=== PATIENT | male | born 1930 | race Caucasian/White ===

== ENCOUNTER → 2018-01-14 | Outpatient (CLI) | payer MEDICARE, OTHER ==
[~2018-01-14] MED LIST: ADJUSTABLE COMM1 MIS; AMLO5TAB2 PO; ASPI-183 PO; CITA20TA4 PO; FOLI1TAB6 PO; HYDR-3580 PO; MELO15TA20 PO; OMEP20TA93 PO; SACC1CAP3 PO; VITA10004 PO; WALKER WHEELS/F1 MIS
--- NOTE | 2018-01-14 09:57 | RADRPT ---
EXAM DATE/TIME: 01/14/2018 09:36 [facility] COMPARISON: CHEST PA & LAT, July 31, 2016, 10:45. INDICATIONS : Evaluate for pneumonia, pneumothorax or communicable disease. Pre op for right total hip surgery. MEDICAL HISTORY : hear murmur SURGICAL HISTORY : None. ENCOUNTER: Initial ACUITY: 1 day PAIN SCORE: 0/10 LOCATION: Bilateral chest FINDINGS: There is mild compensated cardiomegaly with minimal hyperinflation. There is no alveolar consolidati on, pleural effusion or pneumothorax. Previous surgery left shoulder. CONCLUSION: Hyperinflation with mild compensated cardiomegaly Harlan Truong MD FACR on January 14, 2018 at 9:54 Board Certified Radiologist. This report was verified electronically.
[2018-01-14 10:03] LABS: AUTOMATED NEUTROPHIL # 4.4 TH/MM3 (1.8-7.7); BASOPHIL % 0.7 % (0.0-2.0); EOSINOPHIL # 0.1 TH/MM3 (0-0.4); EOSINOPHIL % 1.7 % (0.0-4.0); HEMOGLOBIN 14.4 GM/DL (13.0-17.0); LYMPH % 22.1 % (9.0-44.0); LYMPHOCYTE # 1.4 TH/MM3 (1.0-4.8); MEAN CELL VOLUME 95.2 FL (80.0-100.0); MEAN CORPUSCULAR HEMOGLOBIN 32.7 PG (27.0-34.0); MEAN CORPUSCULAR HGB CONC 34.3 % (32.0-36.0); MONO % 7.1 % (0.0-8.0); MONOCYTE # 0.5 TH/MM3 (0-0.9); NEUT % 68.4 % (16.0-70.0); PLATELET COUNT 187 TH/MM3 (150-450); RED BLOOD COUNT 4.41 MIL/MM3 (4.50-5.90); WHITE BLOOD COUNT 6.4 TH/MM3 (4.0-11.0)
[2018-01-14 10:06] LABS: INTERNATIONAL NORMALIZED RATIO 1.1 RATIO; PROTHROMBIN TIME - PATIENT 10.7 SEC (9.8-11.6)
[2018-01-14 10:10] LABS: BILIRUBIN, URINE NEG (NEG); BLOOD, URINE NEG (NEG); GLUCOSE,URINE NEG (NEG); KETONE, URINE NEG (NEG); MUCUS URINE FEW /lpf (OCC); NITRITE,URINE NEG (NEG); PH, URINE 6.5 (5.0-8.5); URINE COLOR YELLOW (YELLW/STRAW); URINE LEUKOCYTE ESTERASE TRACE (NEG)
[2018-01-14 10:29] LABS: BICARBONATE 26.1 MEQ/L (21.0-32.0); CALCIUM 8.5 MG/DL (8.5-10.1); CREATININE 0.97 MG/DL (0.60-1.30)
--- NOTE | 2018-01-16 08:20 | EKG ---
Date Performed: 01/14/2018 Time Performed: 09:02:54 PTAGE: 87 years EKG: ATRIAL FIBRILLATION MARKED LEFT AXIS DEVIATION ABNORMAL ECG Compared to PREVIOUS TRACING , atrial fibrillation has replaced Sinus rhythm . PREVIOUS TRACIN08/09/2016 21.27 DOCTOR: Gerardo Mendoza Interpretating Date/Time 01/16/2018 08:19:02
== END ==
LOC: CPRE 08:41
PROVIDERS: ATTEND Orthopaedic Surgery
DX: Z01.810 Encounter for preprocedural cardiovascular examination (principal); Z01.812 Encounter for preprocedural laboratory examination; Z01.811 Encounter for preprocedural respiratory examination; M16.51 Unilateral post-traumatic osteoarthritis, right hip; I48.91 Unspecified atrial fibrillation
CPT/HCPCS: 36415; 71046; 80048; 81001; 85025; 85610; 93005

== ENCOUNTER 2018-01-22 06:18 | Inpatient (IN) | payer MEDICARE, OTHER ==
--- NOTE | 2018-01-17 12:33 | MH ---
cc: Eduar Colorado MD DATE OF ADMISSION: 01/22/2018 He is scheduled to be admitted to the hospital on 01/22/2018. 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 HISTORY OF PRESENT ILLNESS: The patient is an 87-year-old white male who has experienced at least a 6 month history of pain involving his right hip area. He has noted the gradual onset of discomfort unrelated to injury or unusual activity. He has been taking meloxicam that he had available at home without any significant benefit of his symptoms being noted and continued to note pain about the right hip and groin area with an intermittent sensation of giving way, although a fall had not actually occurred. Subsequently, he did fall on at least one occasion, but was able to arise and ambulate thereafter and then began to utilize a cane as a parttime ambulatory aid. He had been conforming to exercise activities, which included walking with his where he described obviously limitation secondary ongoing pain. He did report that he had sustained an injury to his right hip secondary to a fall from a ladder within the previous 10 years sustaining a fracture possibly involving his acetabular area. The patient was unable to be more specific in this regard but did undergo orthopedic evaluation at that time, being treated in a nonoperative fashion. He presented to the undersigned physician in 12/2017, describing considerable incapacitation with regards to all ambulatory activities. His x-ray studies revealed severe degenerative changes of the right hip with subtotal obliteration of the joint space, hypertrophic reaction and deformation of the femoral head with a flattening effect being noted. Findings and treatment options were reviewed with the patient at that time. The pros and cons of continued conservative management, versus operative intervention that would involve a total hip replacement were outlined in detail. Emphasis was made regarding the fact that the decision to proceed with surgery would be left entirely to the patient's discretion. The patient readily admitted that he did not feel that continuing with conservative modalities would improve his symptoms and given the progressive nature of his pain with a frequent giving way sensation, with the patient being quite apprehensive that additionally injury might occur secondary to a fall, he was more than eager to proceed with surgery at this time. In compliance with his wishes, he has subsequently been scheduled for admission in order that the above be accomplished. PAST MEDICAL HISTORY: Hospitalizations and surgeries have included a left reverse shoulder arthroplasty for a history of severe glenohumeral joint arthritis, previous arthroscopic surgery of both shoulders, bilateral cataract excision with intraocular lens implants, treatment for macular degeneration, colonoscopy, esophageal dilation and medical observation and management for a syncopal episode. The patient's medical illnesses include hypertension. CURRENT MEDICATIONS: Omeprazole 20 mg daily, meloxicam 15 mg daily, amlodipine 5 mg daily, citalopram 20 mg daily, an 81 mg aspirin tablet daily, vitamin B12, vitamin D3 and probiotic all taken on a daily basis. ALLERGIES: THE PATIENT DENIES ANY KNOWN DRUG ALLERGIES. REVIEW OF SYSTEMS: He does wear glasses. No headache, seizure or syncope. Diminished auditory acuity for which hearing aids have been utilized in the past. No tinnitus. No bleeding gums or dysphagia. Denies cough, shortness of breath, upper respiratory infection and pneumonia. There is an occasional sinus congestion. No angina. He is medically managed for hypertension. Appetite good. Bowel movements regular. No hepatitis, gallbladder disease, ulcers or hemorrhoids. No urinary tract infection. No kidney stones. No prostate disease. A nasal fracture as well as fracture of the lumbar spine, fracture of the left hand and multiple ribs fractures. No psychiatric illness. Remaining review of systems is unremarkable and noncontributory. FAMILY HISTORY: 25 years, this being his third marriage. is 69 years of age, in good health. Two sons and two daughters. One son secondary to a history of lupus. He has 4 adopted children; 2 sons and 2 daughters. One son with a history of pancreatic cancer, one daughter secondary to lung cancer. Family history is positive for diabetes, stroke and Alzheimer disease. SOCIAL HISTORY: The patient completed an 8th grade education. 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 He denies active use of tobacco for at least 40 years, having been a less than 1 pack per day user for 20 years in the past. Ethanol consumption in the form of an occasional glass of wine. PHYSICAL EXAMINATION: VITAL SIGNS: Height 6 feet 1 inch, weight 177 pounds. GENERAL: An alert, oriented and responsive 87-year-old white male who sits quietly upon the examination table with no obvious distress. HEAD, EARS, EYES, NOSE AND THROAT: Pupils are equally round and reactive to light. Extraocular movements full. Sclerae clear. External nares clear. External auditory canals clear. Dental intact. Mucous membranes pink and moist. Pharynx clear. NECK: Supple, active mobility with slight limitations at the extreme of motion indicated to be chronic in nature. Carotid pulse palpable bilaterally. Trachea midline. Thyroid without enlargement. LUNGS: Clear to auscultation and percussion. BACK: No CVA tenderness. No discomfort throughout the dorsal lumbar spine. HEART: Regular irregular rhythm with grade III/ systolic murmur heart best at the right second intercostal space. ABDOMEN: Soft, nontender. Bowel sounds present. RECTAL: Per primary care physician. EXTREMITIES: Right hip: There is no localizing tenderness along the lateral aspect of the right hip. There is limited and restricted mobility of the hip joint in all ranges assessed with pain at the extreme of motion, especially involving internal rotation. Straight leg raising unremarkable at 80 degrees. Juan sign is positive. Distal sensory grossly intact. Limb length discrepancy with shortening of the right leg of at least 1-2 cm magnitude. Pronounced antalgic gait. NEUROLOGIC: Cranial nerves II through XII grossly intact, excluding diminished auditory acuity. 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 PLAN: Right total hip arthroplasty. The nature of the planned surgical procedure, the potential complications and risks associated, the expectations of surgery and the consent form were thoroughly reviewed with the patient in the presence of his prior to admission to the hospital. Shailesh has indicated his full understanding regarding all of the above and given consent to proceed with treatment as outlined. Medical evaluation and clearance for surgery will be completed preoperatively by his primary care physician, Dr. Jenkins. MD RIVKA Bhatt/MARGRET , 11:48 AM , 12:32 PM
[~2018-01-22] VITALS: Ht 182.9 cm; Wt 80.4 kg
[~2018-01-22 06:18] MED LIST changes: -ADJUSTABLE COMM1 MIS; -ASPI-183 PO; -FOLI1TAB6 PO; -HYDR-3580 PO; -WALKER WHEELS/F1 MIS
[2018-01-22] MEDS ORDERED: POVIDONE IODINE 5% (ANTISEPSIS KIT) 4 APPLICATIONS EACH NARE PRN (06:45)
[2018-01-22] MEDS ORDERED: SODIUM CHLORID 0.9% 500 ML IV PRN (06:45)
[2018-01-22] MEDS ORDERED: CHLORHEXIDINE GLUCONATE 2 % 1 PACK (2 CLOTHS) TOPICAL PRN (06:45)
[2018-01-22] MEDS ORDERED: LACTATED RINGER'S 1000 ML IV PRN (06:45)
[2018-01-22] MEDS ORDERED: METOPROLOL TARTRATE 25 MG TAB PO PRN (06:45)
[2018-01-22] MEDS ORDERED: POVIDONE IODINE 7.5% SCRUB 118 ML BOTTLE TOPICAL SCH (07:00)
[2018-01-22] MEDS ORDERED: TRANEXAMIC ACID 1 GM PRIOR TO PROCEDURE IV SCH ×2 (07:00)
[2018-01-22] MEDS ORDERED: ceFAZolin 2 GM PREMIX 50 ML IV SCH (07:00)
[2018-01-22] MEDS ORDERED: FOLI1TAB6 PO (07:06)
[2018-01-22] MEDS ORDERED: HEPARIN SODIUM - SQ 10,000 UNITS/ML VIAL ONE (09:25)
[2018-01-22] MEDS: ceFAZolin INJ 1,000 MG VIAL ONE ×2 (09:50→10:35)
[2018-01-22] MEDS ORDERED: TRANEXAMIC ACID 1 GM POST-OP IV SCH ×2 (10:00)
[2018-01-22] MEDS ORDERED: PHENYLEPH/NS 1000 MCG/10 ML SYR IV ONE (12:00)
[2018-01-22] MEDS ORDERED: NEOSTIGMINE 5 MG/5 ML SYRINGE IV PUSH ONE (12:00)
[2018-01-22] MEDS ORDERED: ROCURONIUM INJ 50 MG/5 ML SYRINGE IV PUSH ONE (12:00)
[2018-01-22] MEDS ORDERED: LACTATED RINGER'S 1000 ML INJ 1,000 ML IV ONE (12:00)
[2018-01-22] MEDS ORDERED: ESMOLOL HCL 100 MG/10 ML VIAL IV ONE (12:00)
[2018-01-22] MEDS ORDERED: PROPOFOL 200 MG/20 ML AMP IV ONE (12:00)
[2018-01-22] MEDS ORDERED: METOPROLOL TARTRATE 5 MG/5 ML VIAL IV ONE (12:00)
[2018-01-22] MEDS ORDERED: GLYCOPYRROLATE 1 MG/5 ML SYRINGE IV PUSH ONE (12:00)
[2018-01-22] MEDS ORDERED: ONDANSETRON HCL 4 MG/2 ML VIAL IV ONE (12:00)
[2018-01-22] MEDS ORDERED: DEXAMETHASONE SOD PHOS 4 MG/ML VIAL IV ONE (12:00)
[2018-01-22] MEDS ORDERED: ePHEDrine/NS 25 MG/5 ML SYRINGE IV ONE (12:00)
[2018-01-22] MEDS ORDERED: ASPI-183 PO (12:35)
[2018-01-22] MEDS ORDERED: HYDR-3580 PO (12:35)
--- NOTE | 2018-01-22 12:37 | HHI.FF ---
Face to Face Verification Diagnosis: (1) Degenerative joint disease of right hip Physical Therapy Gait training Hip: Total hip, Protocol: Right, Posterior hip precautions, Abduction pillow while in bed, Progress to weight bearing Right LE Weight Bearing: WB as tolerated Right LE Range of Motion: Active ROM Nursing Dressing Changes: Daily dressing change I have seen patient Shailesh Bañuelos on 01/22/18. My clinical findings support the need for the requested home health care services because: Limited ability to care for self High risk of falls I certify that my clinical findings support that this patient is homebound because: Post-op weakness Unsteady gait/balance Unsafe to leave home unassisted Eduar Colorado MD Jan 22, 2018 12:37
[2018-01-22] MEDS ORDERED: ADJUSTABLE COMM1 MIS (12:40)
[2018-01-22] MEDS ORDERED: WALKER WHEELS/F1 MIS (12:40)
[2018-01-22] MEDS ORDERED: TRANEXAMIC ACID INJ 1,000 MG in SODIUM CHLORIDE 0.9% INJ 100 ML IV SCH (12:45)
--- NOTE | 2018-01-22 13:07 | MP ---
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 PROCEDURE: Right total hip arthroplasty. SURGEON: Eduar Colorado MD ANESTHESIA: General endotracheal. INDICATIONS: An 87-year-old white male with a 6 month history of pain involving the right hip area. He had noted the gradual onset of his discomfort, unrelated to injury or unusual activity. He had been taking meloxicam that he had available at home without any significant benefit of his symptoms being noted and continuing to experience pain about the right hip and groin area with an intermittent sensation of giving way, although a fall had not actually occurred. He subsequently did fall on at least 1 occasion, but was able to rise and ambulate thereafter, beginning to utilize a cane as an ambulatory aid. He had been conforming to exercise activities, which included walking with his where he described obvious limitations secondary to ongoing pain. He did report that he had sustained an injury to his right hip secondary to a fall from a ladder within the previous 10 years, sustaining a fracture, possibly involving his acetabular area. The patient was unable to be more specific in this regard, indicating that he did undergo orthopedic evaluation at that time, but was treated in a nonoperative fashion. He presented to the undersigned physician in December of this year, describing considerable incapacitation with regards to all ambulatory activities. His x-ray studies revealed severe degenerative changes of the right hip with subtotal obliteration of the joint space, hypertrophic reaction and deformation of the femoral head with a flattening effect being noted. Findings and treatment options were reviewed with the patient at that time. The pros and cons of continuing with conservative management versus operative intervention that would involve a total hip replacement were outlined in detail Emphasis was made regarding the fact that the decision to proceed with surgery would be left entirely to the patient's discretion. The patient readily admitted that he did not feel that continuing with conservative modalities would improve his symptoms, and given the progressive nature of his pain with a frequent giving way sensation and the patient being quite apprehensive that an additional injury might occur secondary to a fall, he was more than eager to proceed with surgery at this time. In compliance with his wishes, he was scheduled for admission in order that the above be accomplished. FORMAT: Following the induction of satisfactory general anesthesia as completed per the department of anesthesia, the patient was positioned upon the operating table in a left lateral decubitus fashion. The right hip and lower extremity proper were isolated with U-drape, thereafter being prepped with betadine solution and draped into a sterile field in the routine manner. Prior to initiation of the actual procedure, the standard timeout protocol was completed. All parameters were appropriately addressed and confirmed by operating room personnel. A standard posterolateral approach to the hip was initiated through a sharp skin incision and developed through underlying subcutaneous tissue with hemostasis maintained by electrocautery. By deepening the section, the fascia overlying the gluteus musculature was exposed, and thereafter sharply incised to the limits of the incision. The underlying gluteus fibers were bluntly divided with the Bovie on cutting current. Progressive dissection facilitated exposure of the short external rotator structures. The piriformis tendon was utilized as an anatomical landmark, and division of these structures was completed in a superior to inferior orientation and reflected medially exposing the posterior capsule. The sciatic nerve was protected. An L capsulotomy was accomplished through which a posterior dislocation of the femoral head was completed. Examination revealed severe degenerative changes with subchondral bone exposed, hypertrophic bony reaction and deformation of the femoral head. The femoral template was positioned for alignment orientation, the neck was scored and thereafter divided with power saw , the amputated segment being passed to the back table as a surgical specimen. Attention was initially directed to the proximal femur. Cancellous bone was harvested. The tapered reamer was inserted for alignment orientation. Sequential rasping and broaching was accomplished from 7 through 14 mm with the calcar melvin being utilized at the 13 mm stage. The 14 mm stem was determined to be a favorable fit. The trial component being removed, attention was redirected to the acetabulum. The labrum and reactive sharp tissue were sharply excised. Progressive reaming was accomplished from 50 through 55 mm with a 56 trial shell positioned and determined to be satisfactory. All trial components being removed, the wound was copiously irrigated with pulsating antibiotic solution, hemostasis maintained by electrocautery. Harvested cancellous bone was digitally impacted into the depths of the acetabulum and thereafter, a 56 mm RingLoc acetabular shell was firmly seated in approximately 45 degrees inclination to the horizontal and slight anteversion. A single 25 mm 6.5 cancellous screw was inserted superiorly to augment fixation. The permanent hollow acetabular liner was affixed to the acetabular shell. Attention returned to the proximal femur. The 14 mm trial femoral broach was positioned, and a trial reduction followed utilizing a 36 mm modular head with -6 mm neck length adapter. The hip readily reduced and was carried through a passive range of motion with stability demonstrated at 90 degrees flexion and 45 degrees internal rotation. An open dislocation was completed, the trial femoral component being removed. The canal was thoroughly irrigated and dried, and thereafter, the permanent 14 mm Echo Bi-Metric standard femoral stem was firmly seated to which a 36 mm ceramic head with -6 mm neck length adaptor attached. Open reduction completed and repeat range of motion again noted stability as previously described. Final irrigation was accomplished with hemostasis maintained. The posterior capsule was repaired with 0 Vicryl suture. Piriformis tendon and short external rotator structures were reapproximated in a similar manner. Hemovac drain tubes were inserted through superior stab wounds. The fascia of the gluteus musculature was reapproximated with a running 0 Vicryl suture. Remaining portion of the wound was closed in layers in the routine manner, skin margins being reapproximated with a running subcuticular 3-0 Vicryl suture over which Steri-Strips were applied. Xeroform gauze and a bulky dry sterile dressing were placed. The patient was repositioned into a supine orientation where an abduction splint was attached. Anesthesia was discontinued. He was thereafter transferred to a hospital bed and returned to the recovery room in satisfactory condition having tolerated his operative procedure well. Estimated blood loss was approximately 500 mL as determined per anesthesia. All implants were of the [employer] forestry hunter. MD RIVKA Bhatt/FLAQUITA , 12:28 PM , 01:05 PM
--- NOTE | 2018-01-22 13:47 | RADRPT ---
EXAM DATE/TIME: 01/22/2018 12:49 [facility] COMPARISON: None. INDICATIONS : <<Post op right hip>> MEDICAL HISTORY : None. SURGICAL HISTORY : None. ENCOUNTER: Initial ACUITY: 1 day PAIN SCORE: Non-responsive. LOCATION: Right hip FINDINGS: Single AP view reveals right total hip replacement. Drain in soft tissues. Normal alignment. CONCLUSION: 1. Postoperative right hip replacement. Pelon Oleary MD on January 22, 2018 at 13:41 Board Certified Radiologist. This report was verified electronically.
[2018-01-22] MEDS ORDERED: ACETAMINOPHEN 325 MG TAB PO PRN (14:00)
[2018-01-22] MEDS: PCA - TOTAL MG MORPHINE DELIVERED PER SHIFT SCH ×2 (14:00→21:19)
[2018-01-22] MEDS: DEXT 5%-NACL 0.45% 1000 ML INJ 1,000 ML IV SCH ×2 (14:00→21:18)
[2018-01-22] MEDS ORDERED: Post-op Orders (for Pharmacy) XX ONE (14:00)
[2018-01-22] MEDS ORDERED: ACETAMINOPHEN/HYDROcodone 325 MG/5 MG TAB PO PRN ×2 (14:00)
[2018-01-22] MEDS ORDERED: NALOXONE HCL 0.4 MG/ML AMP IV PUSH PRN (14:00)
[2018-01-22] MEDS ORDERED: MORPHINE SULFATE 30 MG/30 ML PCA IV SCH (14:00)
[2018-01-22] MEDS ORDERED: ONDANSETRON HCL 4 MG/2 ML VIAL IVP PRN (14:00)
[2018-01-22] MEDS ORDERED: DOCUSATE SODIUM 100 MG CAP PO PRN (14:15)
[2018-01-22] MEDS ORDERED: DO NOT ADM ANY ANTICOAGULANT DRUGS PRN (14:30)
--- NOTE | 2018-01-22 16:19 | PD.CONS ---
HPI Service [facility] Consult Requested By Dr. solitario Reason for Consult Medical management Primary Care Physician Andres Jenkins MD Diagnoses: History of Present Illness This is an 87-year-old male with history of hypertension admitted for right hip replacement. We are being consulted for medical management. Presently, patient is postsurgical, mildly hypotensive in the systolic 90s but also received morphine 8 mg a few minutes ago. Patient does not have any complaints other than mild right hip pain. Denies any chest pain, shortness of breath, nausea, vomiting or headache. Review of Systems ROS Limitations: Other (All other pertinent systems were reviewed and are negative.) Past Family Social History Allergies: Coded Allergies: No Known Allergies (Verified Allergy, Unknown, 01/14/18) Past Medical History Hypertension History of syncope Past Surgical History Left reverse shoulder arthroplasty Arthroscopic surgery both shoulders Cataract excision Macular degeneration Colonoscopy Esophageal dilation Right hip arthroplasty Reported Medications Aspirin 325 Mg Tab 325 Mg PO BID Hydrocodone-Acetaminophen 7.5 Mg-325 Mg Tab 2 Tab PO Q6H PRN Folic Acid 1 Mg Tablet 1 Tab PO DAILY Vitamin B-12 Cr (Cyanocobalamin) 1,000 Mcg Tab 1,000 Mcg PO DAILY Citalopram (Citalopram Hydrobromide) 20 Mg Tab 20 Mg PO DAILY Meloxicam 15 Mg Tab 15 Mg PO DAILY Amlodipine (Amlodipine Besylate) 5 Mg Tab 5 Mg PO DAILY Omeprazole 20 Mg Tab 20 Mg PO DAILY Probiotic (Saccharomyces Boulardii) 250 Mg Cap 250 Mg PO DAILY Family History One son lupus, another son had pancreatic cancer, one daughter had lung cancer. There is family history of stroke, Alzheimer's disease and diabetes. Social History , no tobacco use for 40 years now, used to smoke 1 pack a day for 20 years. Moderate alcohol consumption with an occasional glass of wine. Physical Exam Vital Signs Vital Signs Date Time Temp Pulse Resp B/P (MAP) Pulse Ox O2 Delivery O2 Flow Rate FiO2 01/22/18 15:30 95 14 101/62 (75) 92 Nasal Cannula 2 01/22/18 14:30 85 14 101/62 (75) 98 Nasal Cannula 2 01/22/18 14:04 14 01/22/18 14:00 86 14 102/62 (75) 98 Nasal Cannula 2 01/22/18 13:45 92 16 103/75 (84) 98 Nasal Cannula 2 01/22/18 13:30 86 16 101/57 (72) 98 Nasal Cannula 2 01/22/18 13:15 85 16 104/69 (81) 98 Nasal Cannula 2 01/22/18 13:00 84 16 121/66 (84) 94 Nasal Cannula 2 01/22/18 12:45 83 16 99/64 (76) 96 01/22/18 12:30 101 20 83/50 (61) 94 Simple Mask 6 01/22/18 12:25 97.8 113 20 94/56 (69) 93 Physical Exam Not in distress, well-nourished, looks stated age PERRL, pink conjunctiva without injection, anicteric Nose without bleeding, airway patent, oropharynx clear Supple neck, no masses or thyromegaly, trachea midline Normal rate and regular rhythm, no murmurs gallops or rubs appreciated. Clear to auscultation and symmetric bilaterally, normal respiratory effort. Normal bowel sounds, soft, non-tender, nondistended, no guarding. Extremities without clubbing, cyanosis, or edema. No rash of generalized distribution. Skin is warm and dry. AAO x3, no cranial nerve deficits, moves all 4 extremities, no focal neurologic deficits Imaging Last Impressions Hip X-Ray 01/22/18 1231 Signed Impressions: Service Date/Time: Monday, January 22, 2018 12:49 - CONCLUSION: 1. Postoperative right hip replacement. Pelon Oleary MD Assessment and Plan Assessment and Plan This is an 87-year-old male with history of hypertension status post right hip arthroplasty Right hip arthroplasty-management per primary team. The pain control and bowel regimen GERD-continue PPI Hypertension-continue Norvasc, monitor. Blood pressure soft right now, might need to hold off on Norvasc if hypotensive. Continue IVF, check CBC and BMP. DVT prophylaxis: Per orthopedics. Allyson Castro MD Jan 22, 2018 16:19
[2018-01-22 17:40] VITALS: BP 98/68; PULSE 106; RESP 17; TEMP 97.9; O2SAT 96
[2018-01-22 20:00] VITALS: BP 108/68; PULSE 110; RESP 16; TEMP 95.6; O2SAT 98
[2018-01-22] MEDS ORDERED: ZOLPIDEM TARTRATE 5 MG TAB PO PRN (21:00)
[2018-01-23] VITALS: BP 110/64; PULSE 101; RESP 16; TEMP 96; O2SAT 99
[2018-01-23 04:00] VITALS: BP 115/62; PULSE 95; RESP 16; TEMP 97.1; O2SAT 98
[2018-01-23 05:28] LABS: AUTOMATED NEUTROPHIL # 9.3 TH/MM3 (1.8-7.7); BASOPHIL # 0.1 TH/MM3 (0-0.2); BASOPHIL % 0.4 % (0.0-2.0); HEMATOCRIT 35.8 % (39.0-51.0); HEMOGLOBIN 12.1 GM/DL (13.0-17.0); LYMPH % 13.9 % (9.0-44.0); LYMPHOCYTE # 1.7 TH/MM3 (1.0-4.8); MEAN CELL VOLUME 95.3 FL (80.0-100.0); MEAN CORPUSCULAR HEMOGLOBIN 32.3 PG (27.0-34.0); MEAN CORPUSCULAR HGB CONC 33.9 % (32.0-36.0); MEAN PLATELET VOLUME 9.6 FL (7.0-11.0); MONO % 8.8 % (0.0-8.0); MONOCYTE # 1.1 TH/MM3 (0-0.9); NEUT % 76.9 % (16.0-70.0); PLATELET COUNT 177 TH/MM3 (150-450); RED BLOOD COUNT 3.76 MIL/MM3 (4.50-5.90); RED CELL DISTRIBUTION WIDTH 12.9 % (11.6-17.2); WHITE BLOOD COUNT 12.1 TH/MM3 (4.0-11.0)
[2018-01-23] MEDS: PCA - TOTAL MG MORPHINE DELIVERED PER SHIFT SCH ×3 (05:48→20:41)
[2018-01-23] MEDS: DEXT 5%-NACL 0.45% 1000 ML INJ 1,000 ML IV SCH ×4 (05:49→23:14)
[2018-01-23 05:51] LABS: BICARBONATE 24.5 MEQ/L (21.0-32.0); CALCIUM 8.8 MG/DL (8.5-10.1); CREATININE 0.8 MG/DL (0.60-1.30)
[2018-01-23] MEDS: PANTOPRAZOLE SOD 20 MG DELAYED RELEASE TAB PO SCH (05:54)
[2018-01-23 07:30] VITALS: BP 117/78; PULSE 98; RESP 18; TEMP 96.9; O2SAT 94
[2018-01-23] MEDS ORDERED: NON-FORMULARY DRUG (Saccharomyces Boulardii (Probiotic) 250 MG) PO SCH (09:00)
[2018-01-23] MEDS: amLODIPine BESYLATE 5 MG TAB PO SCH (10:24)
[2018-01-23] MEDS: FOLIC ACID 1 MG TAB PO SCH (10:24)
[2018-01-23] MEDS: MELOXICAM 15 MG TAB PO SCH (10:24)
[2018-01-23] MEDS: CITALOPRAM HYDROBROMIDE 20 MG TAB PO SCH (10:24)
[2018-01-23 12:50] VITALS: BP 114/68; PULSE 88; RESP 16; TEMP 97.4; O2SAT 94
--- NOTE | 2018-01-23 13:25 | HHI.PR ---
Subjective Remarks No overnight events, has mild stomachache. He has GERD. Mildly nauseated but no vomiting. Right hip pain is stable and Objective Vitals Vital Signs Date Time Temp Pulse Resp B/P (MAP) Pulse Ox O2 Delivery O2 Flow Rate FiO2 01/23/18 12:50 97.4 88 16 114/68 (83) 94 01/23/18 07:30 96.9 98 18 117/78 (91) 94 01/23/18 04:00 97.1 95 16 115/62 (79) 98 01/23/18 00:00 96.0 101 16 110/64 (79) 99 01/22/18 21:19 17 01/22/18 20:00 95.6 110 16 108/68 (81) 98 01/22/18 17:40 97.9 106 17 98/68 (78) 96 01/22/18 16:20 97.5 100 12 100/62 (75) 93 01/22/18 15:30 95 14 101/62 (75) 92 Nasal Cannula 2 01/22/18 14:30 85 14 101/62 (75) 98 Nasal Cannula 2 01/22/18 14:04 14 01/22/18 14:00 86 14 102/62 (75) 98 Nasal Cannula 2 01/22/18 13:45 92 16 103/75 (84) 98 Nasal Cannula 2 01/22/18 13:30 86 16 101/57 (72) 98 Nasal Cannula 2 I/O 01/22/18 01/22/18 01/22/18 01/23/18 01/23/18 01/23/18 07:00 15:00 23:00 07:00 15:00 23:00 Intake Total 1600 ml 240 ml 0 ml Output Total 530 ml 320 ml 380 ml Balance 1070 ml -80 ml -380 ml Intake Oral 240 ml 0 ml IV Total 1600 ml Output Urine Total 200 ml 300 ml Drainage Total 30 ml 120 ml 80 ml Estimated Blood Loss 500 ml # Voids 1 # Bowel Movements 0 Result Diagram: 01/23/18 0515 01/23/18 0515 Objective Remarks Not in distress, well-nourished, looks stated age PERRL, pink conjunctiva without injection, anicteric Normal rate and regular rhythm, no murmurs gallops or rubs appreciated. Clear to auscultation and symmetric bilaterally, normal respiratory effort. Normal bowel sounds, soft, non-tender, nondistended, no guarding. Extremities without clubbing, cyanosis, or edema. Right hip dressings in place AAO x3, no cranial nerve deficits, moves all 4 extremities, no focal neurologic deficits A/P Assessment and Plan This is an 87-year-old male with history of hypertension status post right hip arthroplasty Right hip arthroplasty-management per primary team. GERD-continue PPI, start Tums, if no improvement, would increase PPI to twice a day. Hypertension-continue Norvasc, monitor. Blood pressure stable, CBC and BMP stable. DVT prophylaxis: Xarelto per orthopedics Allyson Castro MD Jan 23, 2018 13:25
[2018-01-23] MEDS ORDERED: CALCIUM CARBONATE 500 MG CHEWABLE TAB CHEW PRN (14:30)
[2018-01-23 16:00] VITALS: BP 112/66; PULSE 98; RESP 18; TEMP 96.8; O2SAT 95
[2018-01-23] MEDS: RIVAROXABAN 10 MG TAB PO SCH (16:20)
[2018-01-23 19:20] VITALS: BP 109/59; PULSE 100; RESP 18; TEMP 97.1; O2SAT 95
[2018-01-24 00:36] VITALS: BP 100/67; PULSE 98; RESP 18; TEMP 97.7; O2SAT 96
[2018-01-24 04:37] VITALS: BP 104/65; PULSE 86; RESP 18; TEMP 96.7; O2SAT 94
[2018-01-24] MEDS: PCA - TOTAL MG MORPHINE DELIVERED PER SHIFT SCH (06:00)
--- NOTE | 2018-01-24 06:39 | MD ---
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 HISTORY: An 87-year-old white male with a 6-month history of progressive right hip pain of gradual onset unrelated to injury or unusual activity. He had been taking meloxicam that he had available at home without any significant benefit of his symptoms being noted. He did fall on at least 1 occasion, but able to arise and ambulate thereafter beginning to utilize a cane as a part-time ambulatory aid. He had been conforming to exercise activities which included walking with his where he described obvious limitations secondary to ongoing pain. He did report that he had sustained an injury to his right hip secondary to a fall from a ladder within the previous 10 years sustaining a fracture possibly relating to his acetabulum. He was unable to be more specific with regards to his injury, but did undergo orthopedic evaluation being treated in a nonoperative fashion. He presented to the undersigned physician in 12/2017 describing ongoing incapacitation with all ambulatory activities. His x-ray studies revealed severe degenerative changes about his right hip with subtotal obliteration of the joint space, hypertrophy bony reaction and deformation of the femoral head with a flattening effect being noted. Findings and treatment options were reviewed. The pros and cons of continuing with conservative management versus operative intervention that would involve a total hip replacement were outlined. Emphasis was made regarding the fact that the decision to proceed with surgery would be left entirely to the patient's discretion. The patient readily admitted that he did not feel that continuing with conservative modalities would improve his symptoms and given the progressive nature of his pain with a frequent giving way sensation and the patient being apprehensive that additional injury might occur secondary to a fall, he was eager to proceed with surgery at this time. In compliance with his wishes, he was scheduled for admission in order that total hip replacement be completed. PHYSICAL EXAM: At the time of admission, physical exam revealed no localizing tenderness along the lateral aspect of the right hip. There was limited and restricted mobility of the hip joint in all ranges assessed and pain at the extremes of motion being most pronounced with internal rotation. Straight leg raising unremarkable at 80 degrees. Juan's sign positive. Distal sensory grossly intact. Limb length discrepancy with shortening of the right leg of at least 1-2 cm magnitude, pronounced antalgic gait. HOSPITAL COURSE: Prior to admission to the hospital, the patient had undergone medical evaluation and clearance for surgery as completed by his primary care physician, Dr. Jenkins. He was taken to the operating room on 01/22/2018 and on that date underwent a right total hip arthroplasty completed in an uncomplicated manner. Patient was noted to have tolerated his operative procedure well. His postoperative course stable thereafter. Hemoglobin/hematocrit assessment postoperatively was 12.1 and 35.8 respectively. The patient was progressively mobilized under the guidance of physical therapy being permitted weight-bearing to tolerance about the right lower extremity. Followup examination of his surgical wound noted to be intact healing favorable with no evidence of infection. Medical followup per the hospitalist service, DVT prophylaxis initiated, psychiatric social worker consulted to assist with discharge planning. The patient had expressed his desire to be discharged home and continue his rehabilitation on an outpatient basis. Plans were finalized in this regard and pending medical clearance, he was scheduled for discharge on the 2nd postoperative day at which time he was making favorable progress with regards to his initial rehab program. He was scheduled to be seen in office followup in approximately 4 weeks. His condition at the time of discharge stable. Prognosis favorable. Discharge medications included hydrocodone 5/325 #60; aspirin 325 mg 1 tab twice daily for 4 weeks #60. Eduar Colorado MD NBS/DL , 06:15 AM , 06:37 AM
[2018-01-24] MEDS ORDERED: BISACODYL 10 MG SUPP RECTAL SCH (06:45)
[2018-01-24 08:02] VITALS: BP 104/66; PULSE 97; RESP 18; TEMP 98.6; O2SAT 95
[2018-01-24] MEDS: amLODIPine BESYLATE 5 MG TAB PO SCH (08:20)
[2018-01-24] MEDS: CITALOPRAM HYDROBROMIDE 20 MG TAB PO SCH (08:22)
[2018-01-24] MEDS: PANTOPRAZOLE SOD 20 MG DELAYED RELEASE TAB PO SCH (08:22)
[2018-01-24] MEDS: FOLIC ACID 1 MG TAB PO SCH (08:22)
[2018-01-24] MEDS: MELOXICAM 15 MG TAB PO SCH (08:22)
--- NOTE | 2018-01-24 11:14 | HHI.PR ---
Subjective Remarks Follow-up right hip arthroplasty. Patient seen and examined, evaluating her room comfortably with walker in no apparent distress. Eager to go home. No new complaints. Has been eating well. Denies any reflux. Blood pressure stable. No fevers overnight. Objective Vitals Vital Signs Date Time Temp Pulse Resp B/P (MAP) Pulse Ox O2 Delivery O2 Flow Rate FiO2 01/24/18 08:02 98.6 97 18 104/66 (79) 95 01/24/18 04:37 96.7 86 18 104/65 (78) 94 01/24/18 00:36 97.7 98 18 100/67 (78) 96 01/23/18 19:20 97.1 100 18 109/59 (76) 95 01/23/18 16:00 96.8 98 18 112/66 (81) 95 01/23/18 14:00 16 01/23/18 12:50 97.4 88 16 114/68 (83) 94 I/O 01/23/18 01/23/18 01/23/18 01/24/18 01/24/18 01/24/18 07:00 15:00 23:00 07:00 15:00 23:00 Intake Total 0 ml 720 ml 480 ml 360 ml Output Total 380 ml 0 ml 30 ml Balance -380 ml 720 ml 480 ml 330 ml Intake Oral 0 ml 720 ml 480 ml 360 ml Output Urine Total 300 ml Drainage Total 80 ml 0 ml 30 ml # Voids 6 3 2 # Bowel Movements 0 0 0 Result Diagram: 01/23/18 0515 01/23/18 0515 Imaging Last Impressions Hip X-Ray 01/22/18 1231 Signed Impressions: Service Date/Time: Monday, January 22, 2018 12:49 - CONCLUSION: 1. Postoperative right hip replacement. Pelon Oleary MD Objective Remarks GENERAL: Well-developed, well-nourished patient in NAD. SKIN: Warm and dry. No rash. Right hip dressing HEENT: Normocephalic. Atraumatic. Pupils equal and round. No scleral icterus. No injection or drainage. No nasal bleeding or discharge. Mucous membranes pink and moist. NECK: Supple. Trachea midline. CARDIOVASCULAR: Regular rate and rhythm. S1, S2 noted. No murmur appreciated. RESPIRATORY: No accessory muscle use. Clear to auscultation. Breath sounds equal bilaterally. GASTROINTESTINAL: Abdomen soft, non-tender, nondistended. Normoactive bowel sounds x4. MUSCULOSKELETAL: No obvious deformities. Extremities without clubbing, cyanosis , or edema. Right hip dressing in place. NEUROLOGICAL: Awake and alert. No obvious cranial nerve deficits. Motor grossly within normal limits. 5/5 muscle strength in bilateral upper and lower extremities. Normal speech. A/P Assessment and Plan This is an 87-year-old male with history of hypertension status post right hip arthroplasty: Right hip arthroplasty-management per primary team. GERD, has improved. Continued on home omeprazole. Hypertension-continue Norvasc, monitor. Blood pressure stable, CBC and BMP stable. DVT prophylaxis: Xarelto per orthopedics Ashli Pan Jan 24, 2018 11:14
[2018-01-24] MEDS: RIVAROXABAN 10 MG TAB PO SCH (11:20)
[2018-01-24 12:00] VITALS: BP 97/60; PULSE 105; RESP 19; TEMP 97.1; O2SAT 97
[2018-01-24] MEDS: DEXT 5%-NACL 0.45% 1000 ML INJ 1,000 ML IV SCH (13:03)
[2018-01-24] MEDS ORDERED: MISCELLANEOUS PHARMACY INFORMATION XX ONE (14:00)
== END 2018-01-24 15:37 | disposition home health service (06) | DRG 470 ==
LOC: HSDI 06:18 → N06B 17:28
PROVIDERS: ADMIT Orthopaedic Surgery; ATTEND Orthopaedic Surgery
PROC: 0SR904A Replacement of Right Hip Joint with Ceramic on Polyethylene Synthetic Substitute, Uncemented, Open Approach (ICD-10-PCS; principal; 2018-01-22 09:55)
DX: M16.11 Unilateral primary osteoarthritis, right hip (principal); I10 Essential (primary) hypertension; M21.751 Unequal limb length (acquired), right femur; R26.89 Other abnormalities of gait and mobility; K21.9 Gastro-esophageal reflux disease without esophagitis; Z87.891 Personal history of nicotine dependence
CPT/HCPCS: 73501; 80048; 85025; 86077; 86850; 86870; 86900; 86901; 86902; 86920; 86922; 88304; 88305; 88311; 94150; C1776; J0690; J1100; J1644; J2270; J2370; J2405; J2710; J3010; J7120